=== PATIENT | female | born 1955 | race Caucasian/White ===

== ENCOUNTER 2017-03-15 22:27 | Emergency (ER) | payer BC, OTHER ==
[~2017-03-15] VITALS: Ht 154.9 cm; Wt 69.0 kg
[~2017-03-15 22:27] MED LIST: IBUP-1542 PO
[2017-03-15 22:39] VITALS: Ht 154.9 cm; Wt 69.0 kg
[2017-03-16] MEDS ORDERED: LIDOCAINE 1% (MDV) 20 ML INJ SC ONE
[2017-03-16] MEDS ORDERED: DIPHTH/TET/ACEL PERTUSS (ADULT) 0.5 ML VIAL IM* ONE
--- NOTE | 2017-03-16 00:24 | ERD ---
ER Documentation Chief Complaint Date/Time DATE: 03/16/17 TIME: 00:23 Chief Complaint DOG BITE, LAC TO UPPER LIP. NO TETANUS HPI 61-year-old female presents here in emergency department for complaints of a upper lip laceration wound after a dog bit her. Also patient had a dog bite on the right arm, is bruising on affected area, describes pain on affected areas as throbbing pain, 6/10 scale, and worse touching the area. Patient did not take any medications of to help with symptoms. ROS All systems reviewed and are negative except as per history of present illness. Medications Home Meds Active Scripts Ibuprofen* (Ibuprofen*) 600 Mg Tablet, 600 MG PO Q6 for 7 Days, TAB Prov:EVER PICKENS Srinivas 02/28/16 Allergies Allergies: Coded Allergies: No Known Allergy (Unverified , 01/09/14) PMhx/Soc History of Surgery: No Anesthesia Reaction: No Hx Neurological Disorder: No Hx Respiratory Disorders: No Hx Cardiac Disorders: No Hx Psychiatric Problems: No Hx Miscellaneous Medical Probl: Yes (GERD) Hx Alcohol Use: Yes (socially) Hx Substance Use: No Hx Tobacco Use: No Smoking Status: Never smoker FmHx Family History: No coronary disease, No diabetes, No other Physical Exam Vitals Vital Signs Date Time Temp Pulse Resp B/P Pulse Ox O2 Delivery O2 Flow Rate FiO2 03/15/17 22:39 98.7 90 18 156/91 97 Physical Exam GENERAL: The patient is well developed and appropriate for usual state of health, in no apparent distress. CHEST: Clear to auscultation bilaterally. There are no rales, wheezes or rhonchi. HEART: Regular rate and rhythm. No murmurs, clicks, rubs or gallops. No S3 or S4. ABDOMEN: Soft, nontender and nondistended. Good bowel sounds. No rebound or guarding. No gross peritonitis. No gross organomegaly or masses. No Hernandez sign or McBurney point tenderness. BACK: No midline or flank tenderness. EXTREMITIES: Equal pulses bilaterally. There is no peripheral clubbing, cyanosis or edema. No focal swelling or erythema. Full range of motion. Grossly neurovascularly intact. NEURO: Alert and oriented. Cranial nerves 2-12 intact. Motor strength in all 4 extremities with 5/5 strength. Sensation grossly intact. Normal speech and gait. SKIN: 1 cm laceration wound noted in the right upper lip, noted ecchymosis in the right forearm, 3 x 6 cm tender on palpation, no open wounds noted. There is no apparent rash or petechia. The skin is warm and dry. HEMATOLOGIC AND LYMPHATIC: There is no evidence of excessive bruising or lymphedema. No gross cervical, axillary, or inguinal lymphadenopathy. Results 24 hrs Current Medications Medications (Trade) Dose Ordered Sig/Josiah Route PRN Reason Start Time Stop Time Status Last Admin Dose Admin Diphtheria/ Tetanus/Acell Pertussis (Adacel) 0.5 ml ONCE ONCE IM* 03/16/17 00:00 03/16/17 00:01 DC 03/16/17 00:00 Lidocaine (Xylocaine 1% (Mdv) 20 ml) 2 ml ONCE ONCE SC 03/16/17 00:00 03/16/17 00:01 DC Tdap was given to prevent tetanus. Patient tolerated medication well. Procedures/MDM Procedure Note: After obtaining informed consent, the wound was irrigated with 250 ml of normal saline and cleaned with diluted betadine. Using aseptic technique, 3 ml of 1% lidocaine was injected on the subcutaneous tissue of the laceration wound for anesthetic. After the anesthetic, the wound was approximated using 1 interrupted sutures of 4-0 Vicryl. After the procedure, the wound was well approximated. Patient tolerated procedure well. Bacitracin was applied on the area and a dry dressing. Medical Decision Making: Patient's pain is most likely consistent with a dog bite, patient also has a contusion on the right forearm from a puncture wound possibly from the bite of the dog.. There is no suspicion for neurovascular compromise. Patient has intact sensation and circulation of the affected extremity. There is low suspicion for septic arthritis. Patient does not have any fever. No tendon involvement. No joint involvement. Disposition: Home. Patient is given prescription for ibuprofen for pain, [place] for severe pain, Augmentin for prevention of infection. Patient was advised to elevate the affected area and apply ice on affected area. Patient was advised that if symptoms are worse, numbness, tingling, high fever, unable to move joint , worsening symptoms, to return to emergency department immediately. Otherwise, patient is advised to follow up with the primary care doctor in 2 days for wound check, 5 days for possible evaluation if sutures need to be removed him a abdominal suture was applied, may do dissolve. Departure Diagnosis: Primary Impression: Lip laceration Encounter type: initial encounter Qualified Code: S01.511A - Lip laceration , initial encounter Additional Impression: Forearm contusion Encounter type: initial encounter Laterality: right Qualified Code: S50.11XA - Contusion of right forearm, initial encounter Condition: Stable Patient Instructions: Contusion, Upper Extremity, Laceration, Lip/Mouth Additional Instructions: Patient is given prescription for ibuprofen for pain, [place] for severe pain, Augmentin for prevention of infection. Patient was advised to elevate the affected area and apply ice on affected area. Patient was advised that if symptoms are worse, numbness, tingling, high fever, unable to move joint, worsening symptoms, to return to emergency department immediately. Otherwise, patient is advised to follow up with the primary care doctor in 2 days for wound check, 5 days for possible evaluation if sutures need to be removed him a abdominal suture was applied, may do dissolve. KARTHIK LINK NP March 16, 2017 00:24
[2017-03-16] MEDS ORDERED: IBUP-1542 PO (00:54)
[2017-03-16] MEDS ORDERED: AMOX1TAB10 PO (00:54)
[2017-03-16] MEDS ORDERED: HYDR-906 PO (00:54)
[2017-03-16] MEDS ORDERED: IBUPROFEN 600 MG TAB PO ONE (01:00)
[2017-03-16 01:26] VITALS: BP 185/84; PULSE 77; RESP 16
== END 2017-03-16 01:27 | disposition home or self-care (01) ==
LOC: FTE 22:27
DX: S01.511A Laceration without foreign body of lip, initial encounter (principal); S50.11XA Contusion of right forearm, initial encounter; W54.0XXA Bitten by dog, initial encounter; Y92.9 Unspecified place or not applicable; Z23 Encounter for immunization
CPT/HCPCS: 90471; 90715